=== PATIENT | male | born 1960 | race Caucasian/White ===

== ENCOUNTER 2016-09-22 12:30 | Inpatient (IN) ==
--- NOTE | 2016-09-22 15:10 | Diag Imaging Result Document ---
PROCEDURE NAME: MYOCARDIAL PERFU SCAN, REST - 09/22/2016 INDICATION FOR THE STUDY: Chest pain. Concern for possible myocardial infarction that may have occurred on September 19 at home. Patient's first evaluation was today in the office on September 22. PROCEDURE IN DETAIL: Mr. Jackson was brought into the nuclear laboratory and had a resting study with injection of 26.1 mCi of technetium-99m sestamibi with the usual imaging protocol utilized. FINDINGS: 1. No evidence of abnormal extracardiac uptake. 2. Per rest perfusion imaging, shows a large sized moderate to severe intensity fixed defect in the inferior apical, mid inferior, and basal inferior segments. Portions of the inferior septal and inferolateral segments are noted to be involved as well. 3. The ejection fraction is calculated to be 33% with an end-diastolic volume 123, end-systolic volume of 82. There appears to be akinesis of the inferior wall. cc: Lalo Rosario MD
[2016-09-22] MEDS ORDERED: ASPIRIN PO ONE (16:30)
[2016-09-22] MEDS ORDERED: LOVENOX SUBQ ONE (16:45)
[2016-09-22 16:46] LABS: MANUAL DIFF NEEDED? NO
[2016-09-22 16:48] LABS: BASO% 0.5 % (0.0-0.8); EOS# 0.06 X1000 (0.0-0.7); EOS% 0.8 % (0.0-10.0); HEMATOCRIT 35.3 % (42.0-52.0); HEMOGLOBIN 11.7 g/dL (14.0-18.0); LYMPH# 2.24 X1000 (1.2-3.4); LYMPH% 30.1 % (20.5-51.1); MCH 30.3 PG (27-31); MCHC 33.1 g/dL (33-37); MCV 91.5 FL (81-99); MONO# 0.77 X1000 (0.11-0.59); MONO% 10.4 % (1.7-9.3); MPV 9.8 FL (7.4-10.4); NEUT% 58.2 % (42.2-75.2); PLT 244 X1000 (130-400); RBC 3.86 XMIL (4.7-6.1)
--- NOTE | 2016-09-22 16:50 | EKG Report ---
Test Performed on : 09/22/2016 4:01:19 PM Test Reason : recent nstemi Blood Pressure : / mmHG Vent. Rate : 055 BPM Atrial Rate : 055 BPM P-R Int : 122 ms QRS Dur : 090 ms QT Int : 436 ms P-R-T Axes : 068 081 048 degrees QTc Int : 417 ms Sinus bradycardia. Otherwise normal ECG No previous ECGs available Confirmed by Jeffry POTTS, Patrick Cabrera ([id number]) on 09/23/2016 9:14:18 AM
[2016-09-22 16:59] LABS: INR 1.02; PROTIME 10.7 Seconds (9.2-11.7); PTT HEPARIN PROTOCOL 28.6 Seconds
--- NOTE | 2016-09-22 17:32 | Diag Imaging Result Doc PS360 ---
EXAM: CHEST-2 VIEWS - 09/22/2016 HISTORY: angina recent stemi TECHNIQUE: Chest two views COMPARISON: None. FINDINGS: Heart size is normal. There are apparent COPD/emphysematous changes with mildly to moderately hyperexpanded lungs. There is mild pleural thickening at the left apex, which may be long-standing. There is apparent mild pulmonary scarring at the bilateral upper lobes. There is no consolidation, pleural effusion, or pneumothorax identified. IMPRESSION: Apparent COPD/emphysematous changes with mildly to moderately hyperexpanded lungs. Mild pleural thickening at left apex, which may be long-standing. Apparent mild bilateral upper lobe scarring. No discrete evidence of acute disease. Electronically signed by Sreedhar Ceballos 09/22/2016 5:30 PM
[2016-09-22] MEDS ORDERED: KLOR-CON PO PRN ×3 (17:38)
[2016-09-22] MEDS ORDERED: ZOFRAN IV PRN (17:38)
[2016-09-22] MEDS ORDERED: NITROGLYCERIN SL PRN (17:38)
[2016-09-22] MEDS ORDERED: DULCOLAX PR PRN (17:38)
[2016-09-22] MEDS ORDERED: MILK OF MAGNESIA PO PRN (17:38)
[2016-09-22] MEDS ORDERED: TYLENOL PO PRN (17:38)
[2016-09-22] MEDS ORDERED: RESTORIL PO PRN (17:38)
[2016-09-22] MEDS ORDERED: MAGNESIUM SULFATE 3 GM in NS 100 ML IV PRN (17:38)
[2016-09-22] MEDS ORDERED: MAGNESIUM SULFATE 2 GM in STERILE WATER INJ. 50 ML IV PRN ×4 (17:38)
[2016-09-22] MEDS ORDERED: CEPACOL SORE THROAT LOZENGE MT PRN (17:38)
[2016-09-22 18:10] LABS: AGAP 11; ALBUMIN 3.8 g/dL (3.5-5.0); ALKALINE PHOSPHATASE 98 U/L (32-122); BUN 12 mg/dL (8-22); CALCIUM 8.7 mg/dL (8.8-10.2); CHLORIDE 105 mmol/L (98-107); COSMO 286; GOT 28 U/L (10-34); GPT 33 U/L (10-44); MAGNESIUM 2.2 mg/dL (1.5-2.7); POTASSIUM 3.9 mmol/L (3.5-5.1); SODIUM 144 mmol/L (136-145); TCO2 28 mmol/L (25-35); TOTAL BILIRUBIN 0.37 mg/dL (0.20-1.00); TOTAL PROTEIN 6.6 g/dL (6.3-8.3)
[2016-09-22] MEDS: LIPITOR PO SCH (20:43)
--- NOTE | 2016-09-23 07:05 | EKG Report ---
Test Performed on : 09/23/2016 06:25:49 AM Test Reason : recent nstemi Blood Pressure : / mmHG Vent. Rate : 050 BPM Atrial Rate : 050 BPM P-R Int : 122 ms QRS Dur : 092 ms QT Int : 456 ms P-R-T Axes : 076 077 017 degrees QTc Int : 415 ms Sinus bradycardia. Cannot rule out Inferior infarct , age undetermined Abnormal ECG When compared with ECG of 22-SEP-2016 16:01, (Unconfirmed) No significant change was found Confirmed by Jeffry POTTS, Patrick Cabrera ([id number]) on 09/23/2016 9:14:54 AM
[2016-09-23] MEDS ORDERED: HEPARIN 1000 UNITS/NS 2,000 UNIT/1,000 ML IV.SOLN ONE (08:03)
[2016-09-23] MEDS ORDERED: NITROGLYCERIN ONE (08:03)
[2016-09-23] MEDS: ASPIRIN PO SCH (08:19)
[2016-09-23] MEDS ORDERED: ANESTHESIA PB SET 88 IN 5742 ONE (08:44)
[2016-09-23] MEDS ORDERED: CLAVE TWINSITE 32 IN 11959 ONE (08:44)
[2016-09-23] MEDS ORDERED: NS 2,000 ML ONE (08:44)
[2016-09-23] MEDS ORDERED: VERSED ONE (08:48)
[2016-09-23] MEDS ORDERED: DEMEROL ONE (08:48)
[2016-09-23] MEDS ORDERED: TOPROL XL PO SCH (09:00)
[2016-09-23] MEDS ORDERED: MAALOX PLUS LIQUID PO PRN (10:26)
[2016-09-23] MEDS: NS 1,000 ML IV SCH ×2 (11:41→18:34)
--- NOTE | 2016-09-23 11:55 | CARDIAC CATH REPORT ---
DATE: 09/23/2016 PROCEDURE: 1. Left heart catheterization. 2. Selective coronary angiogram. 3. Left ventriculogram. 4. Selective opacification of the right femoral artery with deployment of a 6- Sammarinese Angio-Seal device. HISTORY: This is a 55-year-old male patient of Dr. Waller and Dr. Lalo Rosario presented to the hospital with a 3-day history of recurrent chest pains. Upon presentation, he received an echocardiogram and a myocardial perfusion study that raised the concern for severe coronary disease. Dr. Rosario recommended a left heart catheterization. Benefits, risks , and complications were discussed with patient in detail. He understood, requested to proceed. DESCRIPTION OF PROCEDURE: The patient was brought to cardiac [facility] in the fasting state. He received 2 mg of Versed, 25 mg of Demerol for sedation The right groin was prepped and draped in sterile fashion, anesthetized with lidocaine 1%. A 6-Sammarinese sheath was inserted into the right femoral artery by following the modified Seldinger technique. Using 6-Sammarinese left Remigio 4 catheters, the left coronary artery was opacified. Then the right coronary artery was opacified with 6-Sammarinese right Remigio 4 catheter. Then using a 6-Sammarinese pigtail, the left ventricle was opacified in the 60- degree JORDANIAN projection by hand injection, and then in the 30-degree JOSE with caudal angulation by injecting 40 mL of Omnipaque at 12 ml/s. Thereafter, the pigtail catheter was removed, the sheath was flushed. The right femoral artery opacified, then Angio-Seal device was deployed successfully. The patient tolerated the procedure well without any obvious complications. SUMMARY OF THE HEMODYNAMIC FINDINGS: Central aortic pressure 92/53, left ventricular pressure 93/12. Post LV gram 87/12. Final central aortic pressure 90/53. SUMMARY OF THE ANGIOGRAPHIC FINDINGS: 1. Left main coronary artery: This vessel arises from the left coronary sinus of Valsalva in a normal fashion. It is free of any obstruction. 2. Left anterior descending coronary artery: This vessel appears to be anatomically normal. There may be very mild diffuse disease, no more than 10% to 20%. The LAD gives rise to a first septal branch and a first diagonal branch. The diagonal branch also shows mild disease, no more than 20%. The LAD thereafter continues down the anterior interventricular groove, shows mild diffuse disease no more than 20%, and reaches the apex of the left ventricle. On its way down to the apex, it gives rise to 2 tiny additional diagonal branches. 3. Left circumflex coronary artery: The left circumflex coronary artery is a nondominant system. It gives rise to a high lateral branch that has a proximal 40% stenosis which is nonsignificant. The circumflex thereafter gives rise to a A-V branch which is free of any obstruction. There are some collaterals that are originating from the circumflex that attach to the right coronary system. 4. Right coronary artery: The right coronary artery is occluded proximally, probably with thrombus. There is some trickle of dye that allows the visualization of the mid portion of the right coronary artery. However, most of that vessel is visualized from collaterals coming from the left system. The right coronary artery is a large dominant system that gives rise to the acute marginal branch and also to posterior descending and posterolateral system. The right coronary artery is visualized almost in its entirety through collaterals. The posterolateral branch has a 60% stenosis proximally in its terminal bifurcation. LEFT VENTRICULOGRAM: Left ventricular chamber in the 60-degree JORDANIAN projection and 30-degree JOSE projection reveals enlargement of the chamber with significant impairment of the inferior apical segment. The ejection fraction is estimated to be in the order of 45%. No mitral regurgitation was noted. OPACIFICATION OF THE RIGHT FEMORAL ARTERY: The right femoral artery is unremarkable. Angio-Seal device was deployed successfully. IMPRESSION: In summary, this study shows: 1. Severe one-vessel coronary artery disease. There is complete occlusion of the right coronary artery proximally. The occlusion may relate to the presence of a thrombus. There is complete visualization of the vessel through collateral system coming from the left. 2. There is a mild to moderate stenosis of the first marginal branch of the circumflex. 3. Moderate impairment of the left ventricular function, ejection fraction estimated to be in the range of 40% to 45% with inferior apical akinesis. No mitral regurgitation is noted. There is no aortic stenosis. 4. LVEDP is normal. 5. Unremarkable right femoral artery. RECOMMENDATION: At this point in time, we will go ahead and treat this patient with Lovenox, Plavix, aspirin, low-dose beta-mary, initiate statins, and we will arrange for a thallium viability study to determine the viability of the inferior wall. If there is significant viability there, then we will pursue elective recanalization of the totally occluded right coronary artery. At the present time, the patient is really not having significant symptoms, and the vessel is basically completely occluded. Therefore, I do not anticipate any immediate benefit to intervening acutely in this case. Will follow him. cc: MD Lalo Rosales MD MTDD
[2016-09-23] MEDS: PLAVIX PO SCH (11:58)
[2016-09-23] MEDS: LOPRESSOR PO SCH ×2 (14:54→20:37)
[2016-09-23] MEDS: PERCOCET-5 PO PRN (17:05)
[2016-09-23] MEDS ORDERED: NS 1,000 ML ONE (18:12)
[2016-09-23] MEDS: LIPITOR PO SCH (20:37)
[2016-09-23] MEDS: LOVENOX SUBQ SCH (20:37)
[2016-09-24] MEDS: LOPRESSOR PO SCH ×4 (02:49→19:44)
[2016-09-24 05:56] LABS: HEMATOCRIT 33.9 % (42.0-52.0); HEMOGLOBIN 11.1 g/dL (14.0-18.0); MCH 30.8 PG (27-31); MCHC 32.7 g/dL (33-37); MCV 94.2 FL (81-99); RBC 3.6 XMIL (4.7-6.1)
[2016-09-24 06:21] LABS: AGAP 11; BUN 10 mg/dL (8-22); CALCIUM 8.5 mg/dL (8.8-10.2); CHLORIDE 104 mmol/L (98-107); COSMO 278; HDL 32 mg/dL (35-55); LDL 79 mg/dL; POTASSIUM 4.5 mmol/L (3.5-5.1); SODIUM 140 mmol/L (136-145); TCO2 25 mmol/L (25-35); TRIGLYCERIDES 70 mg/dL (39-160); VLDL 14 mg/dL
[2016-09-24] MEDS: ASPIRIN PO SCH (09:08)
[2016-09-24] MEDS: PLAVIX PO SCH (09:08)
[2016-09-24] MEDS: LOVENOX SUBQ SCH ×3 (09:11→23:04)
[2016-09-24] MEDS: LIPITOR PO SCH ×2 (19:44→23:04)
[2016-09-25] MEDS: LOPRESSOR PO SCH ×4 (03:35→20:14)
[2016-09-25 05:31] LABS: HEMATOCRIT 34.9 % (42.0-52.0); HEMOGLOBIN 11.5 g/dL (14.0-18.0); MCH 30.5 PG (27-31); MCV 92.6 FL (81-99); MPV 9.8 FL (7.4-10.4); RBC 3.77 XMIL (4.7-6.1)
[2016-09-25 06:16] LABS: AGAP 9; BUN 14 mg/dL (8-22); CALCIUM 8.6 mg/dL (8.8-10.2); CHLORIDE 104 mmol/L (98-107); COSMO 283; MAGNESIUM 2.2 mg/dL (1.5-2.7); POTASSIUM 4.4 mmol/L (3.5-5.1); SODIUM 142 mmol/L (136-145); TCO2 29 mmol/L (25-35)
[2016-09-25] MEDS: PLAVIX PO SCH (08:39)
[2016-09-25] MEDS: LOVENOX SUBQ SCH ×2 (08:39→20:14)
[2016-09-25] MEDS: ASPIRIN PO SCH (08:39)
[2016-09-25] MEDS: PERCOCET-5 PO PRN (19:22)
[2016-09-25] MEDS: LIPITOR PO SCH (20:14)
[2016-09-25] MEDS: XANAX PO PRN (23:25)
[2016-09-26] MEDS: LOPRESSOR PO SCH ×4 (02:15→20:30)
--- NOTE | 2016-09-26 05:27 | EKG Report ---
Test Performed on : 09/23/2016 4:36:23 PM Test Reason : CP Blood Pressure : / mmHG Vent. Rate : 058 BPM Atrial Rate : 058 BPM P-R Int : 132 ms QRS Dur : 084 ms QT Int : 438 ms P-R-T Axes : 066 081 018 degrees QTc Int : 429 ms Sinus bradycardia. Otherwise normal ECG When compared with ECG of 23-SEP-2016 06:25, No significant change was found Confirmed by Jeffry POTTS, Patrick Cabrera ([id number]) on 09/26/2016 7:56:29 AM
--- NOTE | 2016-09-26 05:30 | EKG Report ---
Test Performed on : 09/24/2016 06:07:05 AM Test Reason : chest pain, dyspnea Blood Pressure : / mmHG Vent. Rate : 053 BPM Atrial Rate : 053 BPM P-R Int : 128 ms QRS Dur : 092 ms QT Int : 444 ms P-R-T Axes : 059 080 -17 degrees QTc Int : 416 ms Sinus bradycardia. Cannot rule out Inferior infarct , age undetermined Abnormal ECG When compared with ECG of 23-SEP-2016 16:36, (Unconfirmed) Inverted T waves have replaced nonspecific T wave abnormality in Inferior leads Confirmed by Jeffry POTTS, Patrick Cabrera ([id number]) on 09/26/2016 7:56:41 AM
[2016-09-26 06:02] LABS: AGAP 11; BUN 11 mg/dL (8-22); CALCIUM 8.7 mg/dL (8.8-10.2); CHLORIDE 103 mmol/L (98-107); COSMO 278; MAGNESIUM 2.2 mg/dL (1.5-2.7); POTASSIUM 4.2 mmol/L (3.5-5.1); SODIUM 140 mmol/L (136-145); TCO2 26 mmol/L (25-35)
[2016-09-26] MEDS: LOVENOX SUBQ SCH ×2 (08:19→20:30)
[2016-09-26] MEDS: PLAVIX PO SCH (08:19)
[2016-09-26] MEDS: ASPIRIN PO SCH (08:19)
[2016-09-26 08:25] LABS: HEMATOCRIT 36.5 % (42.0-52.0); HEMOGLOBIN 12.1 g/dL (14.0-18.0); MCH 30.8 PG (27-31); MCHC 33.2 g/dL (33-37); MCV 92.9 FL (81-99); RBC 3.93 XMIL (4.7-6.1)
--- NOTE | 2016-09-26 08:50 | PROGRESS NOTE ---
DATE: 09/26/2016 SUBJECTIVE: Mr. Jackson has not had any further episodes of chest pain. He has been up and about. Groin is not swollen. No dyspnea. OBJECTIVE: Blood pressure is 94/52, pulse 56, respirations 12, temperature 98 degrees. He is awake, alert, slender, in no distress. HEENT: Unremarkable. Chest is clear to auscultation and percussion. Heart sounds regular and rhythmic. No gallop or murmur. Abdomen is nontender, soft. No masses. No hepatomegaly. Right groin shows no hematoma. No bruit. Distal pulses are good. Neurologic: Moves all 4 extremities, follows commands. DIAGNOSTIC DATA: Blood work from 09/26/2016 shows sodium 140, potassium 4.2, BUN is 11, creatinine 0.8, magnesium 2.2. His white count is 7330 as of yesterday, hemoglobin 11.5, platelet count 264,000, it was 244,000 on admission. IMPRESSION: 1. The patient presented with a [id number] myocardial infarction with angiographic evidence of basically complete occlusion of the right coronary artery with presumably fresh thrombus within the proximal segment of the vessel. 2. The patient has a history of being a smoker. 3. Family history of coronary artery disease. RECOMMENDATIONS: Today we are going to complete a thallium viability study to determine whether or not he might benefit from intervention to the right coronary artery. His lipid panel from 09/24/2016 revealed an HDL of 32, LDL of 79, triglycerides of 70, total cholesterol 125. The patient has already been started on atorvastatin 40 mg daily. Further recommendations will depend on the results of the thallium redistribution study. cc: MD Lalo Rosales MD
[2016-09-26] MEDS: XANAX PO PRN ×2 (13:57→20:30)
[2016-09-26] MEDS: LIPITOR PO SCH (20:29)
[2016-09-27] MEDS: LOPRESSOR PO SCH ×3 (02:29→13:53)
[2016-09-27] MEDS: LOVENOX SUBQ SCH (09:32)
[2016-09-27] MEDS: ASPIRIN PO SCH (09:32)
[2016-09-27] MEDS: PLAVIX PO SCH (09:32)
[2016-09-27 11:20] VITALS: BP 92/62
--- NOTE | 2016-09-27 12:47 | DISCHARGE SUMMARY ---
ADMISSION DATE: 09/22/2016 DISCHARGE DATE: 09/27/2016 CHIEF COMPLAINT: Chest pain. HISTORY OF PRESENT ILLNESS: Mr. Jackson is a 55-year-old male who is normally followed by Dr. Shell. He presented to Dr. Lalo Rosario's office on 09/22/2016 with complaints of chest pains that had been going on for a few days. Upon initial evaluation, his electrocardiogram was abnormal. A resting myocardial perfusion stress test suggested the presence of inferior wall scar. The patient was admitted as a case of possible non-ST myocardial infarction. Blood work showed that his cardiac enzymes were 0.408 troponin, then went up to 1.090, then came down to 0.327 and 0.240. His CPKs initially were 57, 84, 50 and 43. All of his electrolytes, BUN and creatinine were normal. His hemoglobin and hematocrit were slightly low. His cholesterol initially showed HDL of 32, LDL was 79, total cholesterol 125. 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 He had excellent collaterals coming from the left system. We recommended Lovenox, aspirin, Plavix, Lipitor and low dose Lopressor. The patient remained stable in the hospital, somewhat bradycardic. He had no further chest pains. We recommended to do a thallium viability study which was initiated on 09/26/2016 and completed on 09/27/2016. In my personal interpretation of the study, I believe there is reasonable viability of the inferior wall of the left ventricle. Based on that, I believe that the patient will probably benefit by pursuing recannulization of the totally occluded right coronary artery since this appears to be an acute event. I explained this to the patient, the benefits, risks and complications. He understood and requested to proceed. We contacted [facility], Dr. Fazal Amaya, and he reviewed the films and agreed that it would be reasonable to attempt intervention, particularly since this was a subacute event. For that matter, we will transfer the patient to [facility] today. FINAL DIAGNOSES: 1. [id number] myocardial infarction involving the inferior wall. 2. Tobacco user. RECOMMENDATIONS: The patient has been advised to quit smoking immediately, to adhere to medical therapy. He will be transferred to [facility] for purposes of percutaneous intervention that should be carried out on the morning of 09/28/2016. The patient will follow up after that with Dr. Lalo Rosario and our team at [facility] office. PROCEDURES PERFORMED: Left heart catheterization, coronary arteriogram, left ventriculogram and a thallium viability study. The patient is leaving the hospital in stable condition. cc: MD Lalo Rosales MD MTDD
--- NOTE | 2016-09-28 13:29 | ECHO REPORT ---
ORDER DATE: 09/22/2016 INDICATION: Chest pain. Myocardial infarction. FINDINGS: 1. Right atrium is mildly enlarged at 4.6 cm. 2. Mild tricuspid regurgitation. 3. Normal RV size and systolic function. 4. No significant pulmonic insufficiency. 5. Normal left atrial size at 3.7. 6. No mitral valve prolapse. Mild mitral regurgitation. 7. Left ventricle is normal in size with an end-diastolic dimension of 4.9. Normal wall thicknesses with a posterior and interventricular septal thickness of 0.8 cm each. Mildly reduced LV systolic function. Estimated EF of around 40%. There does appear to be hypokinesis in the inferior and inferolateral wall. 8. Aortic valve opens well. It is trileaflet. There is trace aortic insufficiency. 9. The aorta appears normal on visualized segments. 10. No pericardial effusion seen. cc: Lalo Rosario MD
--- NOTE | 2016-09-28 14:00 | Diag Imaging Result Document ---
PROCEDURE NAME: MYOCARDIAL PERFU SCAN, REST - 09/26/2016 PROCEDURE: Thallium viability study. SUMMARY: Patient was administered 3.6 mCi of thallium 201 on September 26. The patient was imaged at 15 minutes, 4 hours and 24 hours after injection. SPECT images were reconstructed in the short, horizontal long, vertical long axis. Review of these images demonstrated a severe defect in the entire inferior wall on initial images which remains without significant change on 4 hour and 24 hour images. CONCLUSIONS: 24 hour thallium myocardial viability study demonstrating fixed severe defect in the entire inferior wall at 24 hours. Study suggests minimal if any viability in inferior wall by thallium imaging. cc: MD Clarita Dawn PA
== END 2016-09-27 14:10 | disposition short-term general hospital (02) ==
LOC: NM 12:30 → OBSVTOIN 15:20 → INTOOBSV 15:20 → 3S 15:20
PROVIDERS: ADMIT Internal Medicine Cardiovascular Disease; ATTEND Internal Medicine Cardiovascular Disease